=== PATIENT | female | born 1955 | race Caucasian/White ===

== ENCOUNTER → 2023-08-25 08:40 | Outpatient (REF) | payer MEDICARE, BC, SELFPAY ==
[2023-08-25 09:14] LABS: % Basophils 0.8 % (0-2); % Eosinophils 2.2 % (0-6); % Immature Granulocytes 0.3 % (0-0.5); % Lymphocytes 29.1 % (20.5-51.1); % Monocytes 5.3 % (1.7-9.3); % Neutrophils 62.3 % (42.2-75.2); Absolute Basophils 0.1 10^3/uL (0-0.2); Absolute Eosinophils 0.2 10^3/uL (0-0.7); Absolute Lymphocytes 2.5 10^3/uL (1.2-3.4); Absolute Monocytes 0.5 10^3/uL (0.1-0.6); Absolute Neutrophils 5.4 10^3/uL (1.4-6.5); Hematocrit 38.1 % (37.0-47.0); Hemoglobin 13.2 g/dL (12.0-16.0); Mean Corp Hgb Conc. 34.6 g/dL (33.0-37.0); Mean Corpuscular Hgb 30.1 pg (27.0-31.0); Mean Corpuscular Volume 86.8 fL (81.0-99.0); Mean Platelet Volume 10.5 fL (7.4-10.4); Nucleated Red Blood Cells % 0 %; Platelet Count 167 10^3/uL (130-400); Red Blood Cell Count 4.39 10^6/uL (4.20-5.40); White Blood Cell Count 8.7 10^3/uL (4.8-10.8)
[2023-08-25 09:36] LABS: Glycohemoglobin (HgbA1c) 6.7 % (4.0-5.6)
[2023-08-25 11:12] LABS: ALT (SGPT) 21 U/L (0-35); AST (SGOT) 22 U/L (14-36); Albumin 4.3 g/dl (3.5-5.0); Alkaline Phosphatase 78 U/L (38-126); Blood Urea Nitrogen 35 mg/dl (7-17); Calcium 10.3 mg/dl (8.4-10.2); Carbon Dioxide 25 mmol/L (22-30); Chloride 105 mmol/L (98-107); Glucose 161 mg/dl (70-99); HDL Cholesterol 46 mg/dl; LDL Cholesterol, Calculated 48 mg/dl; Potassium 4.2 mmol/L (3.5-5.1); Sodium 138 mmol/L (135-145); Total Bilirubin 0.6 mg/dl (0.2-1.3); Total Cholesterol 139 mg/dl (50-199); Triglyceride 226 mg/dl (10-149); Very Low Density Lipoprotein 45 mg/dl (0-30)
== END ==
LOC: REG 08:40
PROVIDERS: ATTENDING PHYSICIAN Physician Assistant; FAMILY PHYSICIAN Family Medicine
DX: E11.65 Type 2 diabetes mellitus with hyperglycemia (principal); E78.5 Hyperlipidemia, unspecified
CPT/HCPCS: 36415; 80053; 80061; 83036; 85025

== ENCOUNTER → 2023-09-22 08:45 | Outpatient (REF) | payer MEDICARE, BC, SELFPAY ==
[2023-09-22 11:05] LABS: Albumin 4.5 g/dl (3.5-5.0); Blood Urea Nitrogen 31 mg/dl (7-17); Calcium 10.5 mg/dl (8.4-10.2); Carbon Dioxide 24 mmol/L (22-30); Chloride 103 mmol/L (98-107); Glucose 127 mg/dl (70-99); Phosphorus 3.4 mg/dl (2.5-4.5); Potassium 4.4 mmol/L (3.5-5.1); Sodium 138 mmol/L (135-145); eGFR 18.52
[2023-09-22 11:22] LABS: Intact PTH 108.3 pg/ml (13.6-85.8)
[2023-09-22 12:09] LABS: Protein/creatinine Ratio 1.8; Urine Protein 348 mg/dl
== END ==
LOC: REG 08:45
PROVIDERS: ATTENDING PHYSICIAN Specialist; FAMILY PHYSICIAN Family Medicine
DX: N17.9 Acute kidney failure, unspecified (principal)
CPT/HCPCS: 36415; 80069; 82570; 83970; 84156

== ENCOUNTER → 2023-10-20 08:17 | Outpatient (REF) | payer MEDICARE, BC, SELFPAY ==
[2023-10-20 12:36] LABS: Albumin 4.5 g/dl (3.5-5.0); Blood Urea Nitrogen 37 mg/dl (7-17); Calcium 10.7 mg/dl (8.4-10.2); Carbon Dioxide 20 mmol/L (22-30); Chloride 108 mmol/L (98-107); Glucose 122 mg/dl (70-99); Phosphorus 3.4 mg/dl (2.5-4.5); Potassium 4.4 mmol/L (3.5-5.1); Sodium 141 mmol/L (135-145); eGFR 21.33
== END ==
LOC: REG 08:17
PROVIDERS: ATTENDING PHYSICIAN Specialist; FAMILY PHYSICIAN Family Medicine
DX: N18.4 Chronic kidney disease, stage 4 (severe) (principal); D63.1 Anemia in chronic kidney disease; R80.1 Persistent proteinuria, unspecified
CPT/HCPCS: 36415; 80069

== ENCOUNTER → 2023-11-18 08:26 | Outpatient (REF) | payer MEDICARE, BC, SELFPAY ==
[2023-11-18 10:27] LABS: % Basophils 0.6 % (0-2); % Eosinophils 2.3 % (0-6); % Immature Granulocytes 0.4 % (0-0.5); % Lymphocytes 25.7 % (20.5-51.1); % Monocytes 6.6 % (1.7-9.3); % Neutrophils 64.4 % (42.2-75.2); Absolute Basophils 0.1 10^3/uL (0-0.2); Absolute Eosinophils 0.2 10^3/uL (0-0.7); Absolute Lymphocytes 2.1 10^3/uL (1.2-3.4); Absolute Monocytes 0.5 10^3/uL (0.1-0.6); Absolute Neutrophils 5.1 10^3/uL (1.4-6.5); Hematocrit 37.8 % (37.0-47.0); Hemoglobin 12.3 g/dL (12.0-16.0); Mean Corp Hgb Conc. 32.5 g/dL (33.0-37.0); Mean Corpuscular Hgb 29.8 pg (27.0-31.0); Mean Corpuscular Volume 91.5 fL (81.0-99.0); Mean Platelet Volume 11.2 fL (7.4-10.4); Nucleated Red Blood Cells % 0 %; Platelet Count 193 10^3/uL (130-400); Red Blood Cell Count 4.13 10^6/uL (4.20-5.40); Red Cell Dist. Width 13.2 % (11.5-14.5)
[2023-11-18 11:16] LABS: Albumin 4.2 g/dl (3.5-5.0); Blood Urea Nitrogen 43 mg/dl (7-17); Calcium 10.4 mg/dl (8.4-10.2); Carbon Dioxide 22 mmol/L (22-30); Chloride 109 mmol/L (98-107); Glucose 121 mg/dl (70-99); Phosphorus 3.7 mg/dl (2.5-4.5); Potassium 4.5 mmol/L (3.5-5.1); Sodium 140 mmol/L (135-145); eGFR 18.52
[2023-11-18 11:22] LABS: Protein/creatinine Ratio 2.2; Urine Protein 269 mg/dl
[2023-11-19 12:34] LABS: Intact PTH 130.8 pg/ml (13.6-85.8)
== END ==
LOC: REG 08:26
PROVIDERS: ATTENDING PHYSICIAN Specialist; FAMILY PHYSICIAN Family Medicine
DX: N18.4 Chronic kidney disease, stage 4 (severe) (principal); D63.1 Anemia in chronic kidney disease; R80.1 Persistent proteinuria, unspecified; N25.81 Secondary hyperparathyroidism of renal origin; E11.9 Type 2 diabetes mellitus without complications
CPT/HCPCS: 36415; 80069; 82570; 83970; 84156; 85025

== ENCOUNTER → 2023-12-09 07:56 | Outpatient (REF) | payer MEDICARE, BC, SELFPAY ==
[2023-12-09 08:26] LABS: % Basophils 0.7 % (0-2); % Eosinophils 1.6 % (0-6); % Immature Granulocytes 0.3 % (0-0.5); % Lymphocytes 27.6 % (20.5-51.1); % Monocytes 5.7 % (1.7-9.3); % Neutrophils 64.1 % (42.2-75.2); Absolute Basophils 0.1 10^3/uL (0-0.2); Absolute Eosinophils 0.1 10^3/uL (0-0.7); Absolute Monocytes 0.4 10^3/uL (0.1-0.6); Absolute Neutrophils 4.5 10^3/uL (1.4-6.5); Hematocrit 38.4 % (37.0-47.0); Mean Corp Hgb Conc. 33.9 g/dL (33.0-37.0); Mean Corpuscular Hgb 29.4 pg (27.0-31.0); Mean Corpuscular Volume 86.9 fL (81.0-99.0); Mean Platelet Volume 10.4 fL (7.4-10.4); Nucleated Red Blood Cells % 0 %; Platelet Count 178 10^3/uL (130-400); Red Blood Cell Count 4.42 10^6/uL (4.20-5.40); Red Cell Dist. Width 12.7 % (11.5-14.5); White Blood Cell Count 7.1 10^3/uL (4.8-10.8)
[2023-12-09 08:47] LABS: ALT (SGPT) 15 U/L (0-35); AST (SGOT) 23 U/L (14-36); Albumin 4.7 g/dl (3.5-5.0); Alkaline Phosphatase 76 U/L (38-126); Blood Urea Nitrogen 30 mg/dl (7-17); Calcium 11.1 mg/dl (8.4-10.2); Carbon Dioxide 24 mmol/L (22-30); Chloride 107 mmol/L (98-107); Glucose 111 mg/dl (70-99); Potassium 4.5 mmol/L (3.5-5.1); Sodium 142 mmol/L (135-145); Total Bilirubin 0.9 mg/dl (0.2-1.3); Total Protein 7.6 g/dl (6.3-8.2); eGFR 17.73
[2023-12-09 09:04] LABS: Vitamin D, 25-OH*** 62.6 ng/mL (30-80)
[2023-12-09 09:50] LABS: Glycohemoglobin (HgbA1c) 5.6 % (4.0-5.6)
== END ==
LOC: REG 07:56
PROVIDERS: ATTENDING PHYSICIAN Physician Assistant; FAMILY PHYSICIAN Family Medicine
DX: E11.65 Type 2 diabetes mellitus with hyperglycemia (principal); E55.9 Vitamin D deficiency, unspecified
CPT/HCPCS: 36415; 80053; 82306; 83036; 85025

== ENCOUNTER → 2023-12-24 13:40 | Outpatient (REF) | payer MEDICARE, BC, SELFPAY ==
[2023-12-24 14:34] LABS: Blood Urea Nitrogen 37 mg/dl (7-17); Calcium 10.9 mg/dl (8.4-10.2); Carbon Dioxide 24 mmol/L (22-30); Chloride 108 mmol/L (98-107); Glucose 108 mg/dl (70-99); Potassium 4.4 mmol/L (3.5-5.1); Sodium 142 mmol/L (135-145); eGFR 13.56
== END ==
LOC: REG 13:40
PROVIDERS: ATTENDING PHYSICIAN Specialist; FAMILY PHYSICIAN Family Medicine
DX: N18.4 Chronic kidney disease, stage 4 (severe) (principal)
CPT/HCPCS: 36415; 80048

== ENCOUNTER → 2024-01-01 08:00 | Outpatient (REF) | payer MEDICARE, BC, SELFPAY ==
[2024-01-01 09:01] LABS: Blood Urea Nitrogen 31 mg/dl (7-17); Calcium 9.9 mg/dl (8.4-10.2); Carbon Dioxide 24 mmol/L (22-30); Chloride 104 mmol/L (98-107); Glucose 113 mg/dl (70-99); Phosphorus 4.1 mg/dl (2.5-4.5); Potassium 4.2 mmol/L (3.5-5.1); Sodium 139 mmol/L (135-145); eGFR 21.33
[2024-01-01 09:14] LABS: Intact PTH 137.4 pg/ml (13.6-85.8)
== END ==
LOC: REG 08:00
PROVIDERS: ATTENDING PHYSICIAN Specialist; FAMILY PHYSICIAN Family Medicine
DX: N18.4 Chronic kidney disease, stage 4 (severe) (principal); D63.1 Anemia in chronic kidney disease; E55.9 Vitamin D deficiency, unspecified; N25.81 Secondary hyperparathyroidism of renal origin; R80.1 Persistent proteinuria, unspecified
CPT/HCPCS: 36415; 80048; 83970; 84100

== ENCOUNTER → 2024-01-06 13:12 | Outpatient (REF) | payer MEDICARE, BC, SELFPAY | LOC: WDC 13:12 | PROVIDERS: ATTENDING PHYSICIAN Family Medicine | DX: Z12.31 Encounter for screening mammogram for malignant neoplasm of breast (principal) | CPT/HCPCS: 77063; 77067 ==

== ENCOUNTER → 2024-01-22 07:35 | Outpatient (REF) | payer MEDICARE, BC, SELFPAY ==
[2024-01-22 10:17] LABS: Albumin 4.4 g/dl (3.5-5.0); Blood Urea Nitrogen 38 mg/dl (7-17); Calcium 9.7 mg/dl (8.4-10.2); Carbon Dioxide 24 mmol/L (22-30); Chloride 106 mmol/L (98-107); Glucose 96 mg/dl (70-99); Phosphorus 3.8 mg/dl (2.5-4.5); Potassium 4.3 mmol/L (3.5-5.1); Sodium 140 mmol/L (135-145); eGFR 18.52
[2024-01-22 10:24] LABS: Intact PTH 115.3 pg/ml (13.6-85.8)
== END ==
LOC: REG 07:35
PROVIDERS: ATTENDING PHYSICIAN Specialist; FAMILY PHYSICIAN Family Medicine
DX: I10 Essential (primary) hypertension (principal); N18.4 Chronic kidney disease, stage 4 (severe); D63.1 Anemia in chronic kidney disease
CPT/HCPCS: 36415; 80069; 83970

== ENCOUNTER → 2024-02-02 08:43 | Outpatient (REF) | payer MEDICARE, BC, SELFPAY | LOC: RAD 08:43 | PROVIDERS: ATTENDING PHYSICIAN Surgery Vascular Surgery; FAMILY PHYSICIAN Family Medicine | DX: Z01.818 Encounter for other preprocedural examination (principal) | CPT/HCPCS: 93985 ==

== ENCOUNTER → 2024-02-08 09:18 | Day surgery (SDC) | payer MEDICARE, BC, SELFPAY ==
[2024-02-08] VITALS (10 sets, daily range): BP systolic 101–149; BP diastolic 64–91; BMI 30.2
[2024-02-08 10:07] LABS: Hematocrit 37.7 % (37.0-47.0); Hemoglobin 12.6 g/dL (12.0-16.0); Mean Corp Hgb Conc. 33.4 g/dL (33.0-37.0); Mean Corpuscular Hgb 29.6 pg (27.0-31.0); Mean Corpuscular Volume 88.5 fL (81.0-99.0); Mean Platelet Volume 10.2 fL (7.4-10.4); Platelet Count 168 10^3/uL (130-400); Red Blood Cell Count 4.26 10^6/uL (4.20-5.40); Red Cell Dist. Width 12.8 % (11.5-14.5); White Blood Cell Count 7.4 10^3/uL (4.8-10.8)
[2024-02-08 10:15] LABS: INR 1.01; PT 13.1 Sec (11.4-14.6)
[2024-02-08 10:16] LABS: APTT 26.8 Sec (23.4-35.0)
[2024-02-08 10:23] LABS: Glucose - Point of Care 114 mg/dl (70-99)
[2024-02-08] MEDS: BACTROBAN NASAL 1 GRAM NASAL (10:45)
[2024-02-08] MEDS: NSS 500 IV (10:45)
[2024-02-08] MEDS: PERIDEX 0.12% ORAL RINSE 15 ML PO (10:47)
[2024-02-08 11:02] LABS: Blood Urea Nitrogen 42 mg/dl (7-17); Calcium 9.7 mg/dl (8.4-10.2); Carbon Dioxide 25 mmol/L (22-30); Chloride 104 mmol/L (98-107); Estimated Creatinine Clearance 17 ml/min; Glucose 112 mg/dl (70-99); Potassium 4.2 mmol/L (3.5-5.1); Sodium 139 mmol/L (135-145); eGFR 19.38
[2024-02-08] MEDS: VANCOCIN 200 IV (12:05)
--- NOTE | 2024-02-08 13:54 | W.SUR.PREOP ---
Pre-Operative Surgical Note
-
I have examined this patient prior to the performance of the scheduled procedure.
The patient's condition is unchanged from the time of the current History and
Physical and the patient is able to undergo the scheduled procedure.
--- NOTE | 2024-02-08 15:10 | W.SUR.POST ---
Surgical Immediate Post Op
Note
Pre Op Diagnosis: ESRD
Post Op Diagnosis: ESRD
Procedure Performed: RIGHT Basilic vein transposition (Stage 1)
Primary Surgeon: Luther Muñoz MD
Secondary Surgeons: Nash Escalante MD, PhD
Anesthesia: Per Anesthesia
Estimated Blood Loss: 20 cc
Fluids: Per Anesthesia
Drains/Shunts: None
Specimens/Cultures: None
Doppler/Duplex/Angio (Y/N): None
Complications: None
Operative Findings: Unremarkable stage 1 BVT just proximal to the right AC fossa
--- NOTE | 2024-02-08 15:15 | OR.RPT ---
Operative Report
Operative Report
Date of Operation: 02/08/2024
Pre Op Diagnosis: Advanced chronic kidney disease with anticipated need for hemodialysis
Post Op Diagnosis: Advanced chronic kidney disease with anticipated need for hemodialysis
Procedure: Creation of right upper arm brachiobasilic arteriovenous fistula (first stage of a planned two-stage basilic vein transposition)
Surgeon: Luther Muñoz III, MD
Electric Lift Truck Driver: Nash Escalante MD PhD PGY-6
Anesthesia: General With local
Complications: None
Estimated Blood Loss: 20 cc
History and Indications for Procedure: 68-year-old female with advanced chronic kidney disease and anticipated need for hemodialysis.
Procedure in Detail: Jane Montgomery was correctly identified and placed supine on the operating table. After adequate induction of anesthesia the right arm was positioned, prepped and draped in the usual sterile fashion. Preoperative antibiotics were
administered. A timeout procedure was performed with the nursing and anesthesia staff confirming the patients identity as well as the nature and laterality of the procedure.
I performed intraoperative ultrasound on the veins of the right arm. I identified the upper arm basilic vein from the elbow to the axilla and this was good quality and caliber for arteriovenous fistula creation. This correlated with the
preoperative vein mapping as well. The brachial artery was also identified in the distal upper arm and proximal forearm. The appropriate site for the incision was then identified in the distal upper arm, just proximal to the elbow.
An incision was then made in the distal upper arm. Careful sharp dissection was performed and the basilic vein exposed. Branches of the vein were ligated between ties. The brachial artery was exposed with sharp dissection. Proximal and distal
control was obtained with vessel loops.
The distal end of the basilic vein was ligated with a tie. The vein was transected and flushed proximally with heparinized saline. The vein flushed easily and without resistance. The vessel loops on the artery were secured. An arteriotomy was made
with an ophthalmic blade. This was extended just slightly proximally and distally with Werner scissors. The proximal and distal artery were flushed with heparinized saline. The end of the vein was spatulated slightly. An end-to-side anastomosis was
performed from the end of the basilic vein to the brachial artery with a running 7-0 Prolene. At the completion of the anastomosis the proximal vessel loop was released first. After several heartbeats the distal brachial artery loop was released.
The suture line was closely inspected and hemostasis achieved. There was an excellent thrill in the vein. There was a good pulse in the brachial artery proximal and distal to the anastomosis.
The wound was irrigated with saline. Hemostasis was achieved in the wound bed. The wound was closed in multiple layers and sterile dressings applied.
The patient tolerated the procedure well and was taken to the PACU in stable condition. The thrill was marked at the skin level just proximal to the incision. The patient had a palpable right radial pulse at the conclusion of the case.
Attestation: I was present and responsible for the entire procedure
Signed:
Luther Muñoz III, MD
[facility] V[facility] Surgery
[phone] (lvnn)
[2024-02-08 15:17] LABS: Glucose - Point of Care 107 mg/dl (70-99)
== END | disposition home or self-care (01) ==
LOC: CATH 09:18
PROVIDERS: ATTENDING PHYSICIAN Surgery Vascular Surgery; FAMILY PHYSICIAN Family Medicine
DX: I12.9 Hypertensive chronic kidney disease with stage 1 through stage 4 chronic kidney disease, or unspecified chronic kidney disease (principal); E11.22 Type 2 diabetes mellitus with diabetic chronic kidney disease; N18.9 Chronic kidney disease, unspecified; Z79.85 Long-term (current) use of injectable non-insulin antidiabetic drugs; Z79.01 Long term (current) use of anticoagulants
CPT/HCPCS: 36821; 80048; 82962; 85027; 85610; 85730

== ENCOUNTER → 2024-02-22 14:07 | Outpatient (REF) | payer MEDICARE, BC, SELFPAY | LOC: RAD 14:07 | PROVIDERS: ATTENDING PHYSICIAN Podiatrist Foot & Ankle Surgery | DX: M79.675 Pain in left toe(s) (principal); M20.41 Other hammer toe(s) (acquired), right foot; M20.42 Other hammer toe(s) (acquired), left foot | CPT/HCPCS: 73630; 93922; 93925 ==

== ENCOUNTER → 2024-03-21 08:26 | Outpatient (REF) | payer MEDICARE, BC, SELFPAY | LOC: RAD 08:26 | PROVIDERS: ATTENDING PHYSICIAN Physician Assistant; FAMILY PHYSICIAN Family Medicine | DX: I77.0 Arteriovenous fistula, acquired (principal) | CPT/HCPCS: 93990 ==

== ENCOUNTER → 2024-03-22 08:38 | Outpatient (REF) | payer MEDICARE, BC, SELFPAY ==
[2024-03-22 10:00] LABS: Hemoglobin 12.8 g/dL (12.0-16.0)
[2024-03-22 12:02] LABS: Intact PTH 98.1 pg/ml (13.6-85.8)
[2024-03-22 12:29] LABS: Albumin 4.4 g/dl (3.5-5.0); Blood Urea Nitrogen 38 mg/dl (7-17); Calcium 9.3 mg/dl (8.4-10.2); Carbon Dioxide 23 mmol/L (22-30); Chloride 106 mmol/L (98-107); Glucose 91 mg/dl (70-99); Phosphorus 3.5 mg/dl (2.5-4.5); Potassium 4.1 mmol/L (3.5-5.1); Sodium 143 mmol/L (135-145); eGFR 25.04
== END ==
LOC: REG 08:38
PROVIDERS: ATTENDING PHYSICIAN Specialist; FAMILY PHYSICIAN Family Medicine
DX: N18.4 Chronic kidney disease, stage 4 (severe) (principal)
CPT/HCPCS: 36415; 80069; 83970; 85014; 85018

== ENCOUNTER 2024-04-18 10:16 | Day surgery (SDC) | payer MEDICARE, BC, SELFPAY ==
[2024-04-18] VITALS (10 sets, daily range): BP systolic 110–151; BP diastolic 60–99
[2024-04-18] MEDS: PERIDEX 0.12% ORAL RINSE 15 ML PO (10:50)
[2024-04-18] MEDS: BACTROBAN NASAL 1 GRAM NASAL (10:51)
[2024-04-18 11:21] LABS: Hemoglobin 11.8 g/dL (12.0-16.0); Mean Corp Hgb Conc. 33.7 g/dL (33.0-37.0); Mean Corpuscular Hgb 28.4 pg (27.0-31.0); Mean Corpuscular Volume 84.3 fL (81.0-99.0); Mean Platelet Volume 10.6 fL (7.4-10.4); Platelet Count 172 10^3/uL (130-400); Red Blood Cell Count 4.15 10^6/uL (4.20-5.40); Red Cell Dist. Width 12.9 % (11.5-14.5)
[2024-04-18 11:38] LABS: Blood Urea Nitrogen 29 mg/dl (7-17); Calcium 9.9 mg/dl (8.4-10.2); Carbon Dioxide 25 mmol/L (22-30); Chloride 107 mmol/L (98-107); Estimated Creatinine Clearance 22 ml/min; Glucose 100 mg/dl (70-99); Potassium 4.3 mmol/L (3.5-5.1); Sodium 143 mmol/L (135-145); eGFR 26.54
[2024-04-18] MEDS: VANCOCIN 200 IV (13:52)
--- NOTE | 2024-04-18 16:31 | W.[place]-PDMP ---
[place]-PDMP
-
Checked the [place]- Prescription Drug Monitoring Program website, no red flags identified; safe to proceed with prescription.
--- NOTE | 2024-04-18 16:41 | OR.RPT ---
Operative Report
Operative Report
Date of Operation: 04/18/2024
Pre Op Diagnosis: RIGHT upper extremity brachiobasilic AV fistula (status post 1st stage of planned 2 stage basilic vein transposition)
Post Op Diagnosis: RIGHT upper extremity brachiobasilic AV fistula (status post 1st stage of planned 2 stage basilic vein transposition)
Procedure: Revision of RIGHT upper extremity brachiobasilic AV fistula with transposition of the basilic vein (second stage BVT)
Surgeon: Luther Muñoz III, MD
Steeping Press Tender: Betsy Portillo MD PGY-8
Anesthesia: General
Complications: None
Estimated Blood Loss: 20 cc
History and Indications for Procedure: 68 yo female who was brought to the OR for revision of her right upper arm brachio-basilic AV fistula.
Procedure in Detail: Jane Montgomery was correctly identified and placed supine on the operating table. After adequate induction of anesthesia the right arm was abducted 90 degrees on a side table. A timeout procedure was performed with the nursing and
anesthesia staff confirming the patient's identity and the nature and laterality of the procedure. The basilic vein was marked in the upper arm with ultrasound guidance. The arm was then circumferentially prepped and draped in the usual sterile
fashion. We made an incision over the medial upper arm. The entire basilic vein was dissected with careful sharp dissection. All branches were ligated and divided between ties and metal clips. The vein was good caliber along the entire course and
had an excellent thrill. Once the entire vein had been carefully dissected we then created a gentle curved tunnel lateral to the incision over the bicep with a tunneling device. Proximal control was obtained on the vein with a curved pediatric
clamp. The vein was marked and then transected near the arterial anastomosis. The vein was then brought through the tunnel carefully. The two ends of the vein were anastomosed to one another in an end-to-end fashion using a running 7-0 Prolene
suture for the back wall and interrupted 7-0 Prolene for the front wall. At the completion of the anastomosis the clamp was released and flow restored through the fistula. There was an excellent thrill in the tunnel. The suture line was inspected
for hemostasis and this was achieved. The wound was irrigated with warm saline solution. Hemostasis was achieved in the wound bed. The wound was then closed in multiple layers and sterile dressings applied. The patient had an easily palpable thrill
in the tunnel and a palpable radial pulse at the right wrist at the conclusion of the case.
Attestation: I was present and responsible for the entire procedure
Signed:
Luther Muñoz III, MD
[facility] Vascular Surgery
[phone] (cell)
[2024-04-18 17:10] LABS: Glucose - Point of Care 77 mg/dl (70-99)
[2024-04-18] MEDS: DILAUDID 0.5 MG IV ×2 (17:20→17:36)
[2024-04-18] MEDS: ROXICODONE 5 MG PO (17:58)
[2024-04-18] MEDS: TYLENOL 650 MG PO (17:58)
[2024-04-18 18:11] LABS: Glucose - Point of Care 86 mg/dl (70-99)
== END 2024-04-18 19:00 | disposition home or self-care (01) ==
LOC: CATH 10:16
PROVIDERS: Nurse Practitioner Acute Care; ATTENDING PHYSICIAN Surgery Vascular Surgery; FAMILY PHYSICIAN Family Medicine; OTHER PHYSICIAN Internal Medicine
DX: Z49.01 Encounter for fitting and adjustment of extracorporeal dialysis catheter (principal); I12.0 Hypertensive chronic kidney disease with stage 5 chronic kidney disease or end stage renal disease; E11.22 Type 2 diabetes mellitus with diabetic chronic kidney disease; N18.6 End stage renal disease; E78.5 Hyperlipidemia, unspecified; I34.0 Nonrheumatic mitral (valve) insufficiency; J44.9 Chronic obstructive pulmonary disease, unspecified; K76.0 Fatty (change of) liver, not elsewhere classified; G47.33 Obstructive sleep apnea (adult) (pediatric); Z87.891 Personal history of nicotine dependence; Z86.73 Personal history of transient ischemic attack (TIA), and cerebral infarction without residual deficits; Z79.01 Long term (current) use of anticoagulants; Z79.85 Long-term (current) use of injectable non-insulin antidiabetic drugs
CPT/HCPCS: 36821; 80048; 82962; 85027

== ENCOUNTER → 2024-04-26 07:53 | Outpatient (REF) | payer MEDICARE, BC, SELFPAY ==
[2024-04-26 08:45] LABS: Hemoglobin 11.4 g/dL (12.0-16.0)
[2024-04-26 09:57] LABS: ALT (SGPT) 18 U/L (0-35); AST (SGOT) 24 U/L (14-36); Alkaline Phosphatase 68 U/L (38-126); Blood Urea Nitrogen 29 mg/dl (7-17); Carbon Dioxide 21 mmol/L (22-30); Chloride 108 mmol/L (98-107); Glucose 100 mg/dl (70-99); HDL Cholesterol 57 mg/dl; LDL Cholesterol, Calculated 46 mg/dl; Phosphorus 3.9 mg/dl (2.5-4.5); Potassium 4.8 mmol/L (3.5-5.1); Sodium 144 mmol/L (135-145); Total Bilirubin 0.4 mg/dl (0.2-1.3); Total Cholesterol 129 mg/dl (50-199); Total Protein 6.6 g/dl (6.3-8.2); Triglyceride 134 mg/dl (10-149); Very Low Density Lipoprotein 26 mg/dl (0-30); eGFR 28.23
[2024-04-26 10:33] LABS: TSH 1.12 uIU/ml (0.47-4.68)
== END ==
LOC: REG 07:53
PROVIDERS: ATTENDING PHYSICIAN Specialist; FAMILY PHYSICIAN Family Medicine
DX: N18.4 Chronic kidney disease, stage 4 (severe) (principal); I10 Essential (primary) hypertension; E78.5 Hyperlipidemia, unspecified
CPT/HCPCS: 36415; 80053; 80061; 84100; 84443; 85014; 85018

== ENCOUNTER → 2024-05-24 08:17 | Outpatient (REF) | payer MEDICARE, BC, SELFPAY ==
[2024-05-24 09:54] LABS: Hematocrit 36.1 % (37.0-47.0); Hemoglobin 11.8 g/dL (12.0-16.0)
[2024-05-24 13:31] LABS: Albumin 4.1 g/dl (3.5-5.0); Blood Urea Nitrogen 29 mg/dl (7-17); Carbon Dioxide 23 mmol/L (22-30); Chloride 105 mmol/L (98-107); Glucose 91 mg/dl (70-99); Phosphorus 4.4 mg/dl (2.5-4.5); Potassium 4.3 mmol/L (3.5-5.1); Sodium 141 mmol/L (135-145); eGFR 21.33
[2024-05-24 13:52] LABS: Protein/creatinine Ratio 2.3; Urine Protein 478 mg/dl
== END ==
LOC: REG 08:17
PROVIDERS: ATTENDING PHYSICIAN Specialist
DX: D63.1 Anemia in chronic kidney disease (principal); N18.4 Chronic kidney disease, stage 4 (severe); E55.9 Vitamin D deficiency, unspecified; N25.81 Secondary hyperparathyroidism of renal origin; R80.1 Persistent proteinuria, unspecified; E83.52 Hypercalcemia
CPT/HCPCS: 36415; 80069; 82570; 84156; 85014; 85018

== ENCOUNTER → 2024-06-20 10:39 | Outpatient (REF) | payer MEDICARE, BC, SELFPAY | LOC: RAD 10:39 | PROVIDERS: ATTENDING PHYSICIAN Family Medicine | DX: M85.89 Other specified disorders of bone density and structure, multiple sites (principal) | CPT/HCPCS: 77080 ==

== ENCOUNTER 2024-07-25 06:19 | Day surgery (SDC) | payer MEDICARE, BC, SELFPAY ==
[2024-07-25 10:00] LABS: Glucose - Point of Care 78 mg/dl (70-99)
== END 2024-07-25 12:06 | disposition home or self-care (01) ==
LOC: GI 06:19
PROVIDERS: ATTENDING PHYSICIAN Internal Medicine Gastroenterology
DX: Z12.11 Encounter for screening for malignant neoplasm of colon (principal); R19.5 Other fecal abnormalities; D12.2 Benign neoplasm of ascending colon; D12.4 Benign neoplasm of descending colon; K62.1 Rectal polyp; K57.30 Diverticulosis of large intestine without perforation or abscess without bleeding; R12 Heartburn; K44.9 Diaphragmatic hernia without obstruction or gangrene; K25.9 Gastric ulcer, unspecified as acute or chronic, without hemorrhage or perforation; K21.00 Gastro-esophageal reflux disease with esophagitis, without bleeding; K31.A11 Gastric intestinal metaplasia without dysplasia, involving the antrum
CPT/HCPCS: 45385; 43239; 88305; 82962

== ENCOUNTER → 2024-07-26 07:54 | Outpatient (REF) | payer MEDICARE, BC, SELFPAY ==
[2024-07-26 09:11] LABS: % Basophils 0.7 % (0-2); % Eosinophils 1.7 % (0-6); % Immature Granulocytes 0.3 % (0-0.5); % Lymphocytes 25.9 % (20.5-51.1); % Monocytes 5.4 % (1.7-9.3); Absolute Basophils 0.1 10^3/uL (0-0.2); Absolute Eosinophils 0.1 10^3/uL (0-0.7); Absolute Lymphocytes 1.9 10^3/uL (1.2-3.4); Absolute Monocytes 0.4 10^3/uL (0.1-0.6); Absolute Neutrophils 4.9 10^3/uL (1.4-6.5); Hematocrit 36.4 % (37.0-47.0); Hemoglobin 11.9 g/dL (12.0-16.0); Mean Corp Hgb Conc. 32.7 g/dL (33.0-37.0); Mean Corpuscular Hgb 28.2 pg (27.0-31.0); Mean Corpuscular Volume 86.3 fL (81.0-99.0); Mean Platelet Volume 10.4 fL (7.4-10.4); Nucleated Red Blood Cells % 0 %; Platelet Count 177 10^3/uL (130-400); Red Blood Cell Count 4.22 10^6/uL (4.20-5.40); Red Cell Dist. Width 13.6 % (11.5-14.5); White Blood Cell Count 7.5 10^3/uL (4.8-10.8)
[2024-07-26 09:20] LABS: INR 0.97; PT 13.4 Sec (11.4-14.6)
[2024-07-26 10:20] LABS: ALT (SGPT) 15 U/L (0-35); AST (SGOT) 25 U/L (14-36); Albumin 4.5 g/dl (3.5-5.0); Alkaline Phosphatase 105 U/L (38-126); Blood Urea Nitrogen 19 mg/dl (7-17); Calcium 9.3 mg/dl (8.4-10.2); Carbon Dioxide 23 mmol/L (22-30); Chloride 102 mmol/L (98-107); Glucose 95 mg/dl (70-99); Potassium 4.4 mmol/L (3.5-5.1); Sodium 138 mmol/L (135-145); Total Bilirubin 0.9 mg/dl (0.2-1.3); Total Protein 7.1 g/dl (6.3-8.2); eGFR 23.53
== END ==
LOC: REG 07:54
PROVIDERS: ATTENDING PHYSICIAN Podiatrist Foot & Ankle Surgery; FAMILY PHYSICIAN Family Medicine
DX: Z01.812 Encounter for preprocedural laboratory examination (principal); Z01.818 Encounter for other preprocedural examination; E78.5 Hyperlipidemia, unspecified; Z86.73 Personal history of transient ischemic attack (TIA), and cerebral infarction without residual deficits
CPT/HCPCS: 36415; 71046; 80053; 85025; 85610

== ENCOUNTER → 2024-08-01 08:40 | Outpatient (REF) | payer MEDICARE, BC, SELFPAY ==
[2024-08-01 09:48] LABS: Ionized Calcium 1.14 mMOL/L (1.15-1.33)
[2024-08-01 09:51] LABS: % Basophils 1.3 % (0-2); % Eosinophils 2.8 % (0-6); % Immature Granulocytes 0.4 % (0-0.5); % Lymphocytes 28.6 % (20.5-51.1); % Monocytes 5.6 % (1.7-9.3); % Neutrophils 61.3 % (42.2-75.2); Absolute Basophils 0.1 10^3/uL (0-0.2); Absolute Eosinophils 0.2 10^3/uL (0-0.7); Absolute Lymphocytes 2.1 10^3/uL (1.2-3.4); Absolute Monocytes 0.4 10^3/uL (0.1-0.6); Absolute Neutrophils 4.4 10^3/uL (1.4-6.5); Hematocrit 32.9 % (37.0-47.0); Hemoglobin 10.7 g/dL (12.0-16.0); Mean Corp Hgb Conc. 32.5 g/dL (33.0-37.0); Mean Corpuscular Volume 86.1 fL (81.0-99.0); Mean Platelet Volume 10.5 fL (7.4-10.4); Nucleated Red Blood Cells % 0 %; Platelet Count 186 10^3/uL (130-400); Red Blood Cell Count 3.82 10^6/uL (4.20-5.40); Red Cell Dist. Width 13.5 % (11.5-14.5); White Blood Cell Count 7.2 10^3/uL (4.8-10.8)
[2024-08-01 11:06] LABS: ALT (SGPT) 19 U/L (0-35); AST (SGOT) 24 U/L (14-36); Albumin 3.6 g/dl (3.5-5.0); Alkaline Phosphatase 92 U/L (38-126); Blood Urea Nitrogen 29 mg/dl (7-17); Calcium 8.3 mg/dl (8.4-10.2); Carbon Dioxide 22 mmol/L (22-30); Chloride 107 mmol/L (98-107); Glucose 98 mg/dl (70-99); Potassium 4.7 mmol/L (3.5-5.1); Sodium 139 mmol/L (135-145); Total Bilirubin 0.5 mg/dl (0.2-1.3); Total Protein 6.3 g/dl (6.3-8.2); eGFR 26.38
[2024-08-02 10:23] LABS: Intact PTH 131.8 pg/ml (13.6-85.8)
== END ==
LOC: REG 08:40
PROVIDERS: ATTENDING PHYSICIAN Physician Assistant; FAMILY PHYSICIAN Family Medicine
DX: E11.65 Type 2 diabetes mellitus with hyperglycemia (principal); E83.52 Hypercalcemia
CPT/HCPCS: 36415; 80053; 82330; 83036; 83970; 85025

== ENCOUNTER 2024-08-02 06:16 | Day surgery (SDC) | payer MEDICARE, BC, SELFPAY ==
[2024-08-02 11:42] VITALS: BMI 31.1
[2024-08-02 11:43] VITALS: BP 146/76; BMI 31.1
[2024-08-02] MEDS: VANCOCIN 200 IV (11:52)
[2024-08-02 11:53] LABS: Glucose - Point of Care 82 mg/dl (70-99)
[2024-08-02] MEDS: NORMOSOL-R/PLASMALYTE-A 1000 IV (11:53)
[2024-08-02 13:56] LABS: Glucose - Point of Care 73 mg/dl (70-99)
[2024-08-02 15:10] VITALS: BP 118/59
[2024-08-02 15:15] VITALS: BP 127/51
[2024-08-02 15:30] VITALS: BP 136/56
[2024-08-02 15:45] VITALS: BP 115/74
[2024-08-02 16:00] VITALS: BP 129/47
== END 2024-08-02 16:40 | disposition home or self-care (01) ==
LOC: SDS 06:16
PROVIDERS: ATTENDING PHYSICIAN Podiatrist Foot & Ankle Surgery
DX: M20.42 Other hammer toe(s) (acquired), left foot (principal)
CPT/HCPCS: 28285 ×3; 82962

== ENCOUNTER → 2024-08-22 09:15 | Outpatient (REF) | payer MEDICARE, BC, SELFPAY | LOC: RAD 09:15 | PROVIDERS: ATTENDING PHYSICIAN Podiatrist Foot & Ankle Surgery; FAMILY PHYSICIAN Family Medicine | DX: M20.61 Acquired deformities of toe(s), unspecified, right foot (principal) | CPT/HCPCS: 73630 ==

== ENCOUNTER → 2024-11-06 07:00 | Outpatient (REF) | payer MEDICARE, BC, SELFPAY ==
[2024-11-06 08:12] LABS: Hematocrit 33.2 % (37.0-47.0); Hemoglobin 10.8 g/dL (12.0-16.0)
[2024-11-06 08:32] LABS: Albumin 3.8 g/dl (3.5-5.0); Blood Urea Nitrogen 37 mg/dl (7-17); Calcium 9.2 mg/dl (8.4-10.2); Carbon Dioxide 23 mmol/L (22-30); Chloride 113 mmol/L (98-107); Glucose 112 mg/dl (70-99); Phosphorus 4.7 mg/dl (2.5-4.5); Potassium 5.2 mmol/L (3.5-5.1); Sodium 142 mmol/L (135-145); eGFR 24.88
[2024-11-06 10:03] LABS: Intact PTH 29.5 pg/ml (13.6-85.8)
[2024-11-06 10:30] LABS: Protein/creatinine Ratio 8.7; Urine Protein 676 mg/dl
== END ==
LOC: REG 07:00
PROVIDERS: ATTENDING PHYSICIAN Specialist; FAMILY PHYSICIAN Family Medicine
DX: N18.4 Chronic kidney disease, stage 4 (severe) (principal)
CPT/HCPCS: 36415; 80069; 82570; 83970; 84156; 85014; 85018

== ENCOUNTER → 2024-11-08 07:34 | Outpatient (REF) | payer MEDICARE, BC, SELFPAY ==
[2024-11-08 10:20] LABS: 24 Hour Urine Total Volume 1000 ml; Serum Creatinine 2.1 mg/dl (0.7-1.5)
[2024-11-08 10:21] LABS: Creat Clear Result 30.9 ml/min (61-166); Height Cm 147.32 CM; Surface Area 1.661
[2024-11-08 14:31] LABS: Urine Protein 566 mg/dl (0-12)
== END ==
LOC: REG 07:34
PROVIDERS: ATTENDING PHYSICIAN Specialist; FAMILY PHYSICIAN Family Medicine
DX: N18.4 Chronic kidney disease, stage 4 (severe) (principal)
CPT/HCPCS: 36415; 81050; 82575; 84156

== ENCOUNTER → 2024-12-25 07:33 | Outpatient (REF) | payer MEDICARE, BC, SELFPAY ==
[2024-12-25 08:38] LABS: Hematocrit 34.6 % (37.0-47.0); Hemoglobin 11.3 g/dL (12.0-16.0); Mean Corp Hgb Conc. 32.7 g/dL (33.0-37.0); Mean Corpuscular Volume 86.5 fL (81.0-99.0); Nucleated Red Blood Cells % 0 %; Platelet Count 148 10^3/uL (130-400); Red Cell Dist. Width 13.8 % (11.5-14.5)
[2024-12-25 09:58] LABS: ALT (SGPT) 16 U/L (0-35); AST (SGOT) 19 U/L (14-36); Albumin 4.0 g/dl (3.5-5.0); Alkaline Phosphatase 95 U/L (38-126); Blood Urea Nitrogen 35 mg/dl (7-17); Calcium 8.6 mg/dl (8.4-10.2); Carbon Dioxide 16 mmol/L (22-30); Chloride 116 mmol/L (98-107); Glucose 99 mg/dl (70-99); Potassium 4.6 mmol/L (3.5-5.1); Sodium 142 mmol/L (135-145); Total Protein 6.7 g/dl (6.3-8.2); eGFR 26.38
[2024-12-25 11:07] LABS: Glycohemoglobin (HgbA1c) 4.9 % (4.0-5.6)
== END ==
LOC: REG 07:33
PROVIDERS: ATTENDING PHYSICIAN Physician Assistant; FAMILY PHYSICIAN Family Medicine
DX: E11.65 Type 2 diabetes mellitus with hyperglycemia (principal); E83.52 Hypercalcemia
CPT/HCPCS: 36415; 80053; 83036; 85025

== ENCOUNTER → 2025-03-05 13:22 | Outpatient (REF) | payer MEDICARE, BC, SELFPAY | LOC: WDC 13:22 | PROVIDERS: ATTENDING PHYSICIAN Family Medicine | DX: Z12.31 Encounter for screening mammogram for malignant neoplasm of breast (principal) | CPT/HCPCS: 77063; 77067 ==

== ENCOUNTER → 2025-05-23 08:40 | Outpatient (REF) | payer MEDICARE, BC, SELFPAY ==
[2025-05-23 10:23] LABS: Glycohemoglobin (HgbA1c) 5.9 % (4.0-5.9)
[2025-05-23 10:32] LABS: HDL Cholesterol 78 mg/dl; LDL Cholesterol, Calculated 49 mg/dl; Very Low Density Lipoprotein 21 mg/dl (0-30)
[2025-05-23 10:54] LABS: Microalb - Urine Creatinine 91.000 mg/dl
[2025-05-23 10:59] LABS: TSH 1.32 uIU/ml (0.47-4.68)
[2025-05-23 11:40] LABS: Microalbumin, Random Urine > 57.0 mg/dl (0.6-1.7)
== END ==
LOC: REG 08:40
PROVIDERS: ATTENDING PHYSICIAN Family Medicine
DX: E11.69 Type 2 diabetes mellitus with other specified complication (principal)
CPT/HCPCS: 36415; 80061; 82043; 82570; 83036; 84443

== ENCOUNTER → 2025-06-02 08:24 | Outpatient (REF) | payer MEDICARE, BC, SELFPAY ==
[2025-06-02 09:36] LABS: Hematocrit 37.8 % (37.0-47.0); Hemoglobin 11.9 g/dL (12.0-16.0); Mean Corp Hgb Conc. 31.5 g/dL (33.0-37.0); Mean Corpuscular Volume 86.9 fL (81.0-99.0); Platelet Count 159 10^3/uL (130-400); Red Cell Dist. Width 14.5 % (11.5-14.5)
[2025-06-02 09:46] LABS: ALT (SGPT) 16 U/L (0-35); AST (SGOT) 21 U/L (14-36); Albumin 4.1 g/dl (3.5-5.0); Alkaline Phosphatase 67 U/L (38-126); Blood Urea Nitrogen 24 mg/dl (7-17); Calcium 9.8 mg/dl (8.4-10.2); Carbon Dioxide 25 mmol/L (22-30); Chloride 108 mmol/L (98-107); Glucose 125 mg/dl (70-99); Potassium 4.2 mmol/L (3.5-5.1); Sodium 138 mmol/L (135-145); Total Protein 6.5 g/dl (6.3-8.2); eGFR > 60.00
[2025-06-02 10:01] LABS: Vitamin D, 25-OH*** 21.4 ng/mL (30-80)
[2025-06-02 10:03] LABS: Absolute Neutrophils -Man Diff 2.8 10^3/uL (1.4-6.5)
[2025-06-02 10:04] LABS: Normal RBC Morphology Yes; Platelets Checked Yes; Total Cells Counted 100
== END ==
LOC: REG 08:24
PROVIDERS: ATTENDING PHYSICIAN Physician Assistant; FAMILY PHYSICIAN Family Medicine
DX: E11.65 Type 2 diabetes mellitus with hyperglycemia (principal); E83.52 Hypercalcemia
CPT/HCPCS: 36415; 80053; 82306; 82330; 85025